=== PATIENT | male | born 1985 | race Two or more races ===

== ENCOUNTER → 2025-02-15 | Outpatient (CLI) | payer MEDICAID, SELFPAY ==
[2025-02-15 10:08] VITALS: PULSE 83
[2025-02-15] MEDS: ALBUTEROL RT 2.5 MG/3 ML NEBU (10:08)
[2025-02-15 10:09] VITALS: PULSE 81; RESP 20; O2SAT 99
[2025-02-15 10:43] VITALS: PULSE 81; RESP 22; O2SAT 99
== END | disposition home or self-care (01) ==
PROVIDERS: PCP Nurse Practitioner Family; Referring Provider Nurse Practitioner Family; Visit Provider Nurse Practitioner Family
DX: B38.0 Acute pulmonary coccidioidomycosis (principal)
CPT/HCPCS: 94060; 94640; 94726; 94729